=== PATIENT | male | born 1940 | race Caucasian/White ===

== ENCOUNTER 2020-12-17 12:36 | Emergency (ER) | payer MEDICARE ==
[~2020-12-17] VITALS: Ht 182.9 cm; Wt 102.1 kg
== END 2020-12-17 15:50 | disposition home or self-care (01) ==
LOC: ER1 12:36
DX: Z23 Encounter for immunization (principal); U07.1 COVID-19
CPT/HCPCS: 99283; M0243

== ENCOUNTER 2021-02-04 14:04 | Inpatient (IN) | payer OTHER ==
[~2021-02-04] VITALS: Ht 182.9 cm; Wt 97.1 kg
[2021-02-04 14:51] LABS: RED BLOOD COUNT 4.34 M/UL (4.20-5.50); WHITE BLOOD COUNT 13.3 K/UL (4.5-11.0)
[2021-02-04] MEDS ORDERED: ROPINIROLE HCL1 MG PO (18:43)
[2021-02-04] MEDS ORDERED: COZAAR 50MG TAB50 MG PO (18:45)
[2021-02-04] MEDS ORDERED: KENALOG CREAM 015 GM TOP (18:46)
[2021-02-04] MEDS ORDERED: BREO ELLIPTA 21 EACH INH (18:46)
--- NOTE | 2021-02-05 11:29 | NUR ---
DOUG CONSULT FOR NEPHROLOGY. DR CHOI CALLED, AWARE
--- NOTE | 2021-02-05 14:50 | NUR ---
PATIENT HAS CHANGED HIS MIND ABOUT HAVING AN ECHO. CALLED ZACK NO ANSWER, CALLED ADONIS, NO ANSWER, CALLED EMIL, SHE IS TROUBLE SHOOTING MECHANIC AT 4PM TODAY. WILL CONTINUE TRYING TO REACH ECHO
--- NOTE | 2021-02-06 02:55 | NUR ---
PATIENT'S BLOOD PRESSURE WAS 79/[address] WARREN WAS CALLED AT 0217 AND INFORMED THAT THE PATIENT'S HEART RATE WAS RUNNING BETWEEN 110-150'S AND THE PATIENT'S BLOOD PRESSURE WAS 79/50 AND THAT THE PATIENT IS ON A DOBUTAMINE DRIP AT 5MCG/KG/MIN. DR. WARREN ORDERED 0.5MG OF DIGOXIN IVP. ORDER WAS READ BACK AND VERIFIED AND MD WAS TOLD THE PATIENT'S BLOOD PRESSURE AGAIN. MD STATED THAT LONG THE PATIENTS SBP IS >80, THEN THAT IS OKAY. MD INSTRUCTED TO LEAVE DOBUTAMINE DRIP AT 5MCG/KG/MIN.
[2021-02-06 03:28] LABS: HEMOGLOBIN 11.7 gm/dl (14.0-17.5); RED BLOOD COUNT 3.94 M/UL (4.20-5.50); WHITE BLOOD COUNT 11.3 K/UL (4.5-11.0)
--- NOTE | 2021-02-06 22:56 | NUR ---
PATIENT HAD A 16 BEAT RUN OF VTACH. DR. STEVENSON WAS NOTIFIED. AT 2231 THE PATIENT HAD ANOTHER RUN OF VATCH, [address] WARREN WAS CALLED AT 2233 AND NOTIFIED OF THIS AND THAT NEPHROLOGY STARTED PATIENT ON A LASIX DRIP. DR. WARREN ORDERED TO DROP THE RATE OF THE DOBUTAMINE DRIP DOWN TO 2.5MCG/KG/MIN AND IF THE VTACH EPISODES CONTINUE THEN TO STOP THE DOBUTAMINE DRIP BUT CONTINUE THE LASIX DRIP.
[2021-02-07 03:21] LABS: HEMOGLOBIN 11.7 gm/dl (14.0-17.5); RED BLOOD COUNT 4.07 M/UL (4.20-5.50); WHITE BLOOD COUNT 9.9 K/UL (4.5-11.0)
--- NOTE | 2021-02-08 09:50 | NUR ---
DR. BALL ON FLOOR AND STATES TO STOP DOBUTAMINE DRIP.
[2021-02-09 03:02] LABS: BUN/CREATININE RATIO 29 (0-10)
[2021-02-09 07:12] LABS: CREATININE, URINE 12.8 mg/dL (Not Estab.); MICROALB/CREAT RATIO <23 (0-29)
--- NOTE | 2021-02-09 14:28 | NUR ---
PT GOING DOWN TO [employer] ATTORNEY FOR PROCEDURE
[2021-02-09] MEDS ORDERED: HYDROCODON-ACE1 EAC4 PO (17:21)
[2021-02-09] MEDS ORDERED: CLINDAMYCIN HC300 MG PO (17:21)
[2021-02-09] MEDS ORDERED: LEVOFLOXACIN500 MG PO (17:21)
[2021-02-09] MEDS ORDERED: PACERONE400 MG PO (17:26)
[2021-02-09] MEDS ORDERED: AMIODARONE HCL200 MG PO (17:26)
[2021-02-10 07:40] LABS: HEMOGLOBIN 12.2 gm/dl (14.0-17.5); RED BLOOD COUNT 4.17 M/UL (4.20-5.50); WHITE BLOOD COUNT 12.1 K/UL (4.5-11.0)
[2021-02-10 07:49] LABS: BUN/CREATININE RATIO 25 (0-10)
[2021-02-11 06:56] LABS: HEMOGLOBIN 13.2 gm/dl (14.0-17.5); RED BLOOD COUNT 4.45 M/UL (4.20-5.50); WHITE BLOOD COUNT 12.8 K/UL (4.5-11.0)
[2021-02-11 07:45] LABS: BUN/CREATININE RATIO 23 (0-10)
[2021-02-12 06:55] LABS: BUN/CREATININE RATIO 20 (0-10)
[2021-02-12] MEDS ORDERED: STIMULANT LAXA1 EACH PO (10:41)
[2021-02-12] MEDS ORDERED: ALDACTONE 25MG25 MG PO (10:41)
== END 2021-02-13 15:29 | DRG 226 ==
LOC: ER1 14:04 → PROG CARE 16:32 → MED SURG 4 16:32 → CDU 16:32 → PROG CARE 18:26 → MED SURG 4 02-12 17:34
PROVIDERS: Internal Medicine; Internal Medicine Nephrology; Preventive Medicine Occupational Medicine; ADMIT Family Medicine
PROC: 0JH609Z Insertion of Cardiac Resynchronization Defibrillator Pulse Generator into Chest Subcutaneous Tissue and Fascia, Open Approach (ICD-10-PCS; principal; 2021-02-09)
PROC: 02HL3KZ Insertion of Defibrillator Lead into Left Ventricle, Percutaneous Approach (ICD-10-PCS; 2021-02-09)
PROC: 02H63KZ Insertion of Defibrillator Lead into Right Atrium, Percutaneous Approach (ICD-10-PCS; 2021-02-09)
PROC: 5A2204Z Restoration of Cardiac Rhythm, Single (ICD-10-PCS; 2021-02-09)
DX: I13.0 Hypertensive heart and chronic kidney disease with heart failure and stage 1 through stage 4 chronic kidney disease, or unspecified chronic kidney disease (principal); I50.23 Acute on chronic systolic (congestive) heart failure; N17.9 Acute kidney failure, unspecified; I47.1 Supraventricular tachycardia; E87.1 Hypo-osmolality and hyponatremia; Z20.822 Contact with and (suspected) exposure to COVID-19; E78.5 Hyperlipidemia, unspecified; F32.A Depression, unspecified; F17.220 Nicotine dependence, chewing tobacco, uncomplicated; I42.8 Other cardiomyopathies; R74.01 Elevation of levels of liver transaminase levels; J44.9 Chronic obstructive pulmonary disease, unspecified; E87.6 Hypokalemia; K59.00 Constipation, unspecified; N18.9 Chronic kidney disease, unspecified; I44.7 Left bundle-branch block, unspecified; M19.91 Primary osteoarthritis, unspecified site; Z85.46 Personal history of malignant neoplasm of prostate; Z95.5 Presence of coronary angioplasty implant and graft; Z90.49 Acquired absence of other specified parts of digestive tract; Z91.010 Allergy to peanuts; Z88.8 Allergy status to other drugs, medicaments and biological substances; Z91.14 Patient's other noncompliance with medication regimen
CPT/HCPCS: ECHO; 33225; 33249; 36415; 36600; 71045; 80048; 80053; 80307; 81001; 82043; 82140; 82550; 82553; 82570; 82803; 83605; 83690; 83735; 83874; 83880; 84100; 84132; 84133; 84156; 84300; 84439; 84443; 84484; 85025; 85027; 85652; 86140; 87040; 87086; 89050; 93005; 93306; 93312; 93320; 93641; 94640; 94664; 94760; 96374; 96375; 97116-GP-CQ; 97161; 97166; 97530-GP-CQ; 99152; 99153; 99285; C1751; C1769; C1777; C1882; C1898; C1900; J1160; J1205; J1250; J1644; J1650; J1940; J2250; J2270; J3010; J3370; J7030; J7040; J7050; P9047; Q9965; U0002

== ENCOUNTER 2021-12-02 09:56 | Inpatient (IN) | payer OTHER ==
[~2021-12-02] VITALS: Ht 182.9 cm; Wt 102.1 kg
[~2021-12-02 09:56] MED LIST: ALDACTONE 25MG25 MG PO; AMIODARONE HCL200 MG PO; BREO ELLIPTA 21 EACH INH; CLINDAMYCIN HC300 MG PO; COZAAR 50MG TAB50 MG PO; HYDROCODON-ACE1 EAC4 PO; KENALOG CREAM 015 GM TOP; LEVOFLOXACIN500 MG PO; PACERONE400 MG PO; ROPINIROLE HCL1 MG PO; STIMULANT LAXA1 EACH PO
[2021-12-02 14:31] LABS: HEMOGLOBIN 14.4 gm/dl (14.0-17.5); RED BLOOD COUNT 4.87 M/UL (4.20-5.50); WHITE BLOOD COUNT 10.8 K/UL (4.5-11.0)
[2021-12-02 15:17] LABS: BUN/CREATININE RATIO 34 (0-10)
--- NOTE | 2021-12-03 01:54 | NUR ---
WHEN PT HAS ANY EXCERTION HE DESATS INTO THE LOW 80'S, ONCE WAS READING 75. PT STATES THIS IS NORMAL FOR HIM AT HOME. PT WEARS NO 02 AT HOME. 2L OF 02 WAS PLACED ON PT AND A PULSE OX MONTIORING DUE TO MULTIPLE DIFFERENT MACHINE READINGS. PT IS AT 96% ON 2L AND IS RESTING IN THE BED. WILL CONTINUE TO MONITOR PT. WILL NOTIFY ONCOMING RN OF ABOVE.
[2021-12-03 06:51] LABS: HEMOGLOBIN 11.2 gm/dl (14.0-17.5); RED BLOOD COUNT 3.78 M/UL (4.20-5.50)
[2021-12-03] MEDS ORDERED: FUROSEMIDE40 MG PO (11:46)
[2021-12-03] MEDS ORDERED: SPIRONOLACTONE25 MG PO (11:46)
[2021-12-03] MEDS ORDERED: ROPINIROLE HCL1 MG PO (11:46)
[2021-12-03] MEDS ORDERED: AMIODARONE HCL200 MG PO (11:46)
[2021-12-04 16:18] LABS: BUN/CREATININE RATIO 25 (0-10)
[2021-12-05 05:56] LABS: HEMOGLOBIN 11.5 gm/dl (14.0-17.5); RED BLOOD COUNT 3.92 M/UL (4.20-5.50); WHITE BLOOD COUNT 10.6 K/UL (4.5-11.0)
[2021-12-05 06:15] LABS: BUN/CREATININE RATIO 28 (0-10)
[2021-12-06 06:30] LABS: RED BLOOD COUNT 4.04 M/UL (4.20-5.50); WHITE BLOOD COUNT 10.6 K/UL (4.5-11.0)
[2021-12-06 06:50] LABS: BUN/CREATININE RATIO 31 (0-10)
--- NOTE | 2021-12-06 10:32 | NUR ---
PATIENT HAD 10 BEAT RUN OF V-TACH. SATINDERY SENT UP STRIPS, AND PROVIDER NOTIFIED. WCTM.
[2021-12-07 06:23] LABS: HEMOGLOBIN 11.6 gm/dl (14.0-17.5); RED BLOOD COUNT 4.02 M/UL (4.20-5.50); WHITE BLOOD COUNT 9.4 K/UL (4.5-11.0)
[2021-12-07 06:55] LABS: BUN/CREATININE RATIO 31 (0-10)
[2021-12-08 06:13] LABS: HEMOGLOBIN 12.1 gm/dl (14.0-17.5); RED BLOOD COUNT 4.19 M/UL (4.20-5.50); WHITE BLOOD COUNT 8.8 K/UL (4.5-11.0)
[2021-12-08 07:05] LABS: BUN/CREATININE RATIO 30 (0-10)
[2021-12-09 05:47] LABS: HEMOGLOBIN 11.7 gm/dl (14.0-17.5); RED BLOOD COUNT 4.02 M/UL (4.20-5.50); WHITE BLOOD COUNT 7.4 K/UL (4.5-11.0)
[2021-12-09 06:03] LABS: BUN/CREATININE RATIO 28 (0-10)
[2021-12-09] MEDS ORDERED: LOVENOX40 MG/0.4 SQ (10:47)
[2021-12-09] MEDS ORDERED: ACETAMINOPHEN500 MG PO (10:48)
[2021-12-09] MEDS ORDERED: METOPROLOL TART25 MG PO (11:00)
[2021-12-09] MEDS ORDERED: HYDROCODON-ACE1 EAC4 PO (11:01)
[2021-12-09] MEDS ORDERED: PROVENTIL HFA6.7 GM INH (11:02)
[2021-12-09] MEDS ORDERED: IPRAT-ALBUT 0.5-3 ML INH (11:02)
== END 2021-12-09 12:21 | DRG 480 ==
LOC: ER1 09:56 → CDU 18:29 → MED SURG 4 18:29
PROVIDERS: Internal Medicine; Orthopaedic Surgery; Physician Assistant; ADMIT Family Medicine
PROC: B24BZZZ Ultrasonography of Heart with Aorta (ICD-10-PCS; 2021-12-03)
PROC: 0QS604Z Reposition Right Upper Femur with Internal Fixation Device, Open Approach (ICD-10-PCS; principal; 2021-12-04 11:58)
DX: S72.111A Displaced fracture of greater trochanter of right femur, initial encounter for closed fracture (principal); I50.23 Acute on chronic systolic (congestive) heart failure; I13.0 Hypertensive heart and chronic kidney disease with heart failure and stage 1 through stage 4 chronic kidney disease, or unspecified chronic kidney disease; I42.8 Other cardiomyopathies; I47.1 Supraventricular tachycardia; I49.5 Sick sinus syndrome; I25.10 Atherosclerotic heart disease of native coronary artery without angina pectoris; M19.90 Unspecified osteoarthritis, unspecified site; E78.5 Hyperlipidemia, unspecified; J44.9 Chronic obstructive pulmonary disease, unspecified; F01.50 Vascular dementia, unspecified severity, without behavioral disturbance, psychotic disturbance, mood disturbance, and anxiety; I27.20 Pulmonary hypertension, unspecified; N18.30 Chronic kidney disease, stage 3 unspecified; I08.3 Combined rheumatic disorders of mitral, aortic and tricuspid valves; G25.81 Restless legs syndrome; I48.0 Paroxysmal atrial fibrillation; R29.6 Repeated falls; W18.30XA Fall on same level, unspecified, initial encounter; I25.5 Ischemic cardiomyopathy; Z95.810 Presence of automatic (implantable) cardiac defibrillator; Z79.01 Long term (current) use of anticoagulants; Z87.891 Personal history of nicotine dependence; Z80.0 Family history of malignant neoplasm of digestive organs; Z88.8 Allergy status to other drugs, medicaments and biological substances
CPT/HCPCS: ECHO; 36415; 36600; 70450; 71045; 73502; 73552; 73700; 76000; 80048; 80053; 82550; 82553; 82803; 83735; 83880; 84132; 84484; 85025; 85027; 93005; 93306; 94760; 96374; 96376; 97110; 97110-GP-CQ; 97116; 97116-GP-CQ; 97161; 97166; 97530; 97530-GP-CQ; 99285; C1713; J0690; J1650; J1940; J2250; J2270; J2704; J3010